=== PATIENT | female | born 2000 | race Caucasian/White ===

== ENCOUNTER 2020-03-12 18:05 | Emergency (ER) | payer OTHER, SELFPAY ==
[2020-03-12 18:11] VITALS: BP 110/68; PULSE 120; RESP 16; TEMP 38.3; O2SAT 100
--- NOTE | 2020-03-12 18:55 | PC.NURSE ---
Pt states she has SI and tried to walk into traffic and cut self over the last two days. Pt states she has not been sleeping or having appetite the last couple days. Pt states she has increased stress due to moving, cheating and possible end of marriage, etc. Pt states she has hx of self cutting, OD attempts, jumping off heights. Pt has family at bedside. Pt aware of POC.
--- NOTE | 2020-03-12 19:13 | ED.PSYCH ---
HPI - Psych General Chief Complaint: Psychiatric Symptoms <Pam Del Angel PA-C - Last Filed: 03/12/20 22:01> Stated Complaint: SI thoughts <Pam Del Angel PA-C - Last Filed: 03/12/20 22:01> Time Seen by Provider: 03/12/20 18:54 <Pam Del Angel PA-C - Last Filed: 03/12/20 22:01> Source: patient <MISHA Arboleda Last Filed: 03/12/20 22:01> Mode of arrival: ambulatory <MISHA Arboleda Last Filed: 03/12/20 22:01> Limitations: no limitations <Pam Del Angel PA-C - Last Filed: 03/12/20 22:01> History of Present Illness HPI Narrative: This is a 19 year old female that presents to the ER for suicide attempt today. Reports she tried to walk into traffic to get run over. Reports last night she cut her right thigh in attempt to harm herself. Reports history of self harm. Presents with her friend who brought her to be evaluated. Reports she is having some trouble at home that is causing depression. Reports history of anxiety and depression. Denies fever, cold symptoms, abdominal pain, vomiting, dysuria or hematuria. <Pam Del Angel PA-C - Last Filed: 03/12/20 22:01> Review of Systems Review of Systems: Narrative: CONSTITUTIONAL: Denies fever RESPIRATORY: Denies cough or dyspnea. GASTROINTESTINAL: Denies abdominal pain, nausea, vomiting GENITOURINARY: Denies dysuria or hematuria. SKIN: Reports lacerations PSYCHIATRIC: Reports anxiety and depression. <Pam Del Angel PA-C - Last Filed: 03/12/20 22:01> All systems reviewed & are unremarkable except as noted in HPI and below <Pam Del Angel PA-C - Last Filed: 03/12/20 22:01> PMFSH Past Medical History Medical History: Medical History (Updated 03/13/20 @ 05:04 by Brendan Johnson MD) History of anxiety History of depression <Pam Del Angel PA-C - Last Filed: 03/12/20 22:01> Social History Social History: Social History (Updated 03/12/20 @ 19:19 by Pam Del Angel PA-C) Smoking status: Current every day smoker Alcohol intake: current Substance use: never Gender identity (if verbalized by the patient): Female <Pam Del Angel PA-C - Last Filed: 03/12/20 22:01> Exam Narrative: Exam Narrative: GENERAL: Well-appearing, well-nourished, and in no acute distress. HEAD: Normocephalic, atraumatic. EYES: PERRLA and EOMI. ENT: Nares clear, no rhinorrhea or epistaxis. Mucous membranes moist. Oropharynx without tonsillar hypertrophy exudate or other lesions. Bilateral TMs pearly ferrer non-bulging NECK: Supple. No adenopathy or masses. CHEST: Clear to auscultation. No respiratory distress. No wheezes rales or rhonchi HEART: Regular rate and rhythm. No murmur heard. Normal peripheral pulses. EXTREMITIES: Normal range of motion. No edema. SKIN: Warm, dry, no rash. Several, small superficial lacerations to the anterior right thigh NEURO: No focal deficits. Alert and oriented x3. PSYCH: Depressed mood <Pam Del Angel PA-C - Last Filed: 03/12/20 22:01> Course Vital Signs Vital signs: Vital Signs Temperature 38.3 C H 03/12/20 18:11 Pulse Rate 120 H 03/12/20 18:11 Respiratory Rate 16 03/12/20 18:11 Blood Pressure 110/68 03/12/20 18:11 Pulse Oximetry 100 03/12/20 18:11 Temperature 36.6 C 03/13/20 03:00 Pulse Rate 90 03/13/20 03:00 Respiratory Rate 18 03/13/20 03:00 Blood Pressure 101/57 L 03/13/20 03:00 Pulse Oximetry 100 03/13/20 03:00 <Pam Del Angel PA-C - Last Filed: 03/12/20 22:01> Vital Signs Temperature 38.3 C H 03/12/20 18:11 Pulse Rate 120 H 03/12/20 18:11 Respiratory Rate 16 03/12/20 18:11 Blood Pressure 110/68 03/12/20 18:11 Pulse Oximetry 100 03/12/20 18:11 Temperature 36.6 C 03/13/20 03:00 Pulse Rate 90 03/13/20 03:00 Respiratory Rate 18 03/13/20 03:00 Blood Pressure 101/57 L 03/13/20 03:00 Pulse Oximetry 100 03/13/20 03:00 <Brendan Johnson MD - Last Filed: 03/13/20 06:06> BILLIE - Psych M
[2020-03-12 19:15] LABS: Basophils Percent Auto 0.6 % (0.2-1.2); Eosinophils Absolute Auto 0.1 K/mm3 (0-0.3); Eosinophils Percent Auto 1.1 % (0-4.4); Hematocrit 37.5 % (37.0-47.0); Hemoglobin 12.6 g/dL (12.0-15.0); Immature Granulocyte Absolute 0.01 K/mm3 (0.00-0.031); Immature Granulocyte Percent A 0.2 % (0-0.5); Lymphocytes Absolute Auto 3.35 K/mm3 (0.9-3.2); Mean Corpuscular HGB Conc 33.6 g/dl (32-36); Mean Corpuscular Hemoglobin 30.6 pg (26-34); Monocytes Absolute Auto 0.5 K/mm3 (0.1-0.6); Monocytes Percent Auto 7.3 % (2.6-8.5); Neutrophils Absolute Auto 2.5 K/mm3 (1.3-6.7); Neutrophils Percent Auto 38.8 % (45.5-73.1); Platelet Count Result 323 k/mm3 (150-375); Red Blood Count 4.12 M/mm3 (4.2-5.4); Red Cell Distribution Width 12.1 % (11.5-14.5); White Blood Count 6.4 K/mm3 (4.5-10.0)
[2020-03-12 19:16] VITALS: BP 108/68; PULSE 98; TEMP 37; O2SAT 99
[2020-03-12] MEDS: TETANUS,DIPHTHERIA,AC PERTUSSIS ADULT (0.5 ML) BOOSTRIX IM (19:22)
[2020-03-12 19:26] LABS: Alanine Aminotransferase 12 U/L (4-35); Albumin Level 4.7 g/dL (3.7-5.6); Alkaline Phosphatase 47 U/L (45-116); Aspartate Amino Transferase 19 U/L (14-36); Bilirubin,Total 0.4 mg/dL (0.2-1.3); Blood Urea Nitrogen 10 mg/dL (8-21); Calcium 9.4 mg/dL (8.9-10.7); Carbon Dioxide 23 mmol/L (22-30); Chloride 108 mmol/L (98-107); Estimated CRCL calculation 111 ml/min; Estimated Glomerular Filt Rate > 60; Glucose 87 mg/dL (65-105); Potassium 3.8 mmol/L (3.4-5.0); Sodium 142 mmol/L (134-143)
[2020-03-12 19:27] LABS: Ethanol 123 mg/dL (<10)
[2020-03-12 19:59] LABS: Add Urine Microscopic? YES; Appearance Urine Clear (Clear); Bilirubin Urine Negative (Negative); Blood Urine 3+ (Negative); Color Urine Straw (Yellow); Glucose Urine UA Negative (Negative); Ketones Urine Negative (Negative); Leukocyte Esterase Ur Negative LEU/UL (Negative); Mucus Urine Rare /lpf; Nitrate Urine Negative (Negative); Protein Urine Negative (Negative); RBC Urine 0-2 /hpf (0-2); Specific Grav Ur 1.011 (1.001-1.035); Squamous Epithelial Cell Urine Occasional /hpf (Few); Urobilinogen Urine Negative mg/dL (<2.0); WBC Urine 0-3 /hpf
[2020-03-12 20:10] LABS: Amphetamine Screen Urine Negative (Negative); Barbiturate Screen Urine Negative (Negative); Benzodiazepines Screen Urine Negative (Negative); Cannabinoid Screen Urine Negative (Negative); Cocaine Screen Urine Negative (Negative); Methadone Screen Urine Negative (Negative); Opiate Screen Urine Negative (Negative); Phencyclidine Screen Urine Negative (Negative)
[2020-03-13 00:28] LABS: Ethanol < 10 mg/dL (<10)
--- NOTE | 2020-03-13 00:40 | PC.NURSE ---
This nurse contacts [facility] and speaks with Mau in regards to patient being evaluated. Mau states patient does not qualify for [facility] since patient has private insurance. food cart attendant notified.
--- NOTE | 2020-03-13 00:42 | PC.NURSE ---
This nurse calls Crisis and speaks with Duong to have patient evaluated. Duong stated he will call the recycling worker to notify her of the patient's need for evaluation. Duong stated the recycling worker is on her way out.
[2020-03-13 03:00] VITALS: BP 101/57; PULSE 90; RESP 18; TEMP 36.6; O2SAT 100
== END 2020-03-13 06:01 | disposition home or self-care (01) ==
PROVIDERS: Physician Assistant; Emergency Provider Emergency Medicine; PCP Nurse Practitioner Family
DX: T14.91XA Suicide attempt, initial encounter (principal); S71.111A Laceration without foreign body, right thigh, initial encounter; Z23 Encounter for immunization; F17.290 Nicotine dependence, other tobacco product, uncomplicated; X78.8XXA Intentional self-harm by other sharp object, initial encounter
CPT/HCPCS: 36415; 80053; 80307; 81001; 81025; 84443; 85025; 90471; 90715; 99284

== ENCOUNTER 2022-03-23 16:16 | Emergency (ER) | payer OTHER, SELFPAY ==
[2022-03-23 16:33] VITALS: BP 108/63; PULSE 88; RESP 18; TEMP 37.3; O2SAT 99
--- NOTE | 2022-03-23 16:35 | ED.URI ---
HPI - URI/Sore Throat General Chief Complaint: Upper Respiratory Infection Stated Complaint: Wheezing,Chest Congestion Time Seen by Provider: 03/23/22 16:30 Source: patient Mode of arrival: ambulatory Limitations: no limitations History of Present Illness HPI Narrative: Ms. Garza is a 21-year-old female patient presenting to the clinic today with complaints of shortness of breath, congestion, and cough. She reports that her symptoms began on Sunday and she took a COVID test yesterday and it was positive. She denies any fever or chills. She reports that her cough and shortness of breath are increasingly getting worse and she is concerned that she may have pneumonia. States she is bringing up some clear phlegm with her cough. SPO2 is 98 to 99% on room air MD elicited complaint: sore throat and nasal congestion Related Data Home Medications Medication Instructions Recorded Confirmed lamotrigine 25 mg tablet 1 tablet PO DAILY 03/23/22 03/23/22 Allergies Allergy/AdvReac Type Severity Reaction Status Date / Time No Known Allergies Allergy Verified 03/23/22 16:31 Review of Systems Review of Systems: Pertinent positives per HPI. Patient denies any fever, chills, rash, headache, visual changes, dizziness, chest pain, palpitations, nausea, vomiting, diarrhea, constipation, abdominal pain, or any urinary issues. [facility] Past Medical History Medical History (Updated 03/23/22 @ 16:38 by Lamont Anderson APRN) History of anxiety History of depression Social History Social History (Updated 03/12/20 @ 19:19 by Pam Del Angel PA-C) Smoking status: Current every day smoker Alcohol intake: current Substance use: never Gender identity (if verbalized by the patient): Female Comments At the time of my signature, I reviewed and agree with the nursing past medical, surgical, social, and family history. There is no relevant family history pertinent to the patient complaint. Exam Narrative: General: Well-developed, well nourished, in no apparent distress Head: Normocephalic, atraumatic Eyes: Pupils equally round and reactive to light bilaterally, EOM intact, sclera and conjunctive clear, no discharge, lids normal Ears: TMs intact and clear, ear canals clear, no drainage, grossly hearing normal. Nose: Nares patent, no discharge, no inflammation, no sinus tenderness. Mouth: Oral pharynx without lesions or masses, good dentition, MMM. Neck: Supple, trachea midline, no enlargement of anterior or posterior cervical nodes, no thyroid masses or goiter palpable. Cardio: Regular rate and rhythm, s1 and s2 normal, no murmur appreciated. Resp: Clear to auscultation bilaterally, no rhonchi, rales, wheezing or rubs Course Course Emergency Course: Portions of this record may have been created with voice recognition software. Level of Care: Express Care Visit Vital Signs Vital signs: Vital signs reviewed MDM - URI/Sore Throat MDM Narrative Medical decision making narrative: At the time of visit patient is resting comfortably on the exam table. She has had a positive COVID test yesterday. Since she is having worsening symptoms I will go ahead and give her a prescription for albuterol inhaler and paxlovid. Work note was given. discharge plan reviewed with the patient and she voiced understanding of discharge instructions and agrees to treatment plan. Differential Diagnosis Differential diagnosis: Likely upper respiratory infection, sinusitis, viral infection, influenza, pharyngitis and other (COVID) Discharge Plan Discharge Clinical Impression: COVID-19 Patient Disposition: Home, Self-Care Condition: Stable Instructions: Antibiotic Form, How To Wash Your Hands (ED), Droplet Precautions (ED), COVID-19 (Coronavirus Disease 2019) (ED), How to Recover from COVID-19 at Home (ED) Additional Instructions: Take prescription medications only as prescribed-albuterol inhaler and paxlovid as prescribed In
== END 2022-03-23 16:45 | disposition home or self-care (01) ==
PROVIDERS: Emergency Provider Nurse Practitioner Family
DX: U07.1 COVID-19 (principal); F17.200 Nicotine dependence, unspecified, uncomplicated; F32.A Depression, unspecified
CPT/HCPCS: 99213; G0463

== ENCOUNTER 2022-07-11 16:53 | Emergency (ER) | payer OTHER, SELFPAY ==
[2022-07-11 17:06] VITALS: BP 107/76; PULSE 76; RESP 18; TEMP 36.8; O2SAT 99
--- NOTE | 2022-07-11 17:21 | ED.GENADULT ---
HPI - General Adult General Chief complaint: Upper Respiratory Infection Stated complaint: rt ear discomfort,cough History of Present Illness HPI narrative: 22 y/o female. PMHx Non-contributory. Presents to [facility] clinic today with acute complaints of increased nasal congestion, cough, and bilateral ear 'fullness' for the past She describes a large amount of sinus congestion and discharge. Bilateral ear pressure, LT > burdensome than RT. Non-productive cough. Positive ESCALANTE/pressure, intermittent dizziness, worse with quick movements. No focal weakness or seizure like activity. No fevers, neck pain. No chest pain palpitations, dyspnea. No GI upset, N/V. Client denies known ill contacts. Has been tested negative for Covid at work daily. She is on day # 5 of oral Amoxicillin per PCP, however notes only some reliefs. Related Data Home Medications Medication Instructions Recorded Confirmed amoxicillin 875 mg-potassium 1 tablet BID 07/11/22 07/11/22 clavulanate 125 mg tablet Allergies Allergy/AdvReac Type Severity Reaction Status Date / Time No Known Allergies Allergy Verified 07/11/22 17:15 Review of Systems Review of Systems: CONSTITUTIONAL: No fever, chills, sweats. ESCALANTE. EYES: Denies visual changes, redness, discharge. ENT: Positive rhinorrhea, congestion, otalgia. No sore throat. CARDIOVASCULAR: Denies chest pain, palpitations, edema. RESPIRATORY: Denies dyspnea, wheezing. Positive cough GASTROINTESTINAL: Denies abdominal pain, nausea, vomiting, diarrhea. GENITOURINARY: Denies dysuria, hematuria, abnormal discharge SKIN: Denies rash or itching. MUSCULOSKELETAL: Denies acute back pain, joint pain, or myalgia. NEUROLOGIC: Denies numbness, or focal weakness. PSYCHIATRIC: Denies anxiety or depression. PMFSH Past Medical History Medical History History of anxiety History of depression Social History Social History Smoking status: Current every day smoker Alcohol intake: current Substance use: never Gender identity (if verbalized by the patient): Female Exam Narrative: GENERAL: This is a well-nourished, well-developed adult, in no apparent distress. HEAD: normocephalic, atraumatic. EYES: PERRL. Sclera clear/white. EOM intact. No nystagmus. EARS: External ears normal, auditory canals clear and without drainage, TMs full/bulging. NOSE: External nose normal. Positive thick purulent nasal discharge, no obstruction. THROAT: Mucous membranes moist, posterior pharynx erythematous, no exudative change. +PND. NECK: Neck supple, non-tender without lymphadenopathy, masses or thyromegaly. CARDIOVASCULAR: Regular rate and rhythm without murmurs, gallops, or rubs. RESPIRATORY: Clear to auscultation. Breath sounds equal bilaterally. No wheezes, rales, or rhonchi. GASTROINTESTINAL: Abdomen soft, non-tender, nondistended. Bowel sounds are active. No guarding. SKIN: warm, intact with no suspicious lesions or rash, good texture and turgor. NEURO: Alert, active, and age appropriate. No focal neurologic deficits. EXTREMITIES: Negative. Course Course Level of Care: Express Care Visit Vital Signs Vital signs: Vital Signs Temperature 36.8 C 07/11/22 17:06 Pulse Rate 76 07/11/22 17:06 Respiratory Rate 18 07/11/22 17:06 Blood Pressure 107/76 07/11/22 17:06 Pulse Oximetry 99 07/11/22 17:06 Oxygen Delivery Room Air 07/11/22 17:06 Temperature 36.8 C 07/11/22 17:06 Pulse Rate 76 07/11/22 17:06 Respiratory Rate 18 07/11/22 17:06 Blood Pressure 107/76 07/11/22 17:06 Pulse Oximetry 99 07/11/22 17:06 Oxygen Delivery Room Air 07/11/22 17:06 Medical Decision Making [facility] Narrative Medical decision making narrative: -Normotensive, no fluctuations. -No focal neurological deficits. -Appears non-toxic. -OP care instructions have be
== END 2022-07-11 17:27 | disposition home or self-care (01) ==
PROVIDERS: Emergency Provider Nurse Practitioner Adult Health
DX: J06.9 Acute upper respiratory infection, unspecified (principal)
CPT/HCPCS: 99213; G0463

== ENCOUNTER 2022-12-18 20:01 | Emergency (ER) | payer OTHER, SELFPAY ==
[2022-12-18 20:07] VITALS: BP 114/69; PULSE 101; RESP 18; TEMP 37.2; O2SAT 100
[2022-12-18 20:33] LABS: Basophils Absolute Auto 0.1 K/mm3 (0.0-0.1); Basophils Percent Auto 0.6 % (0.2-1.2); Eosinophils Absolute Auto 0.1 K/mm3 (0-0.3); Eosinophils Percent Auto 0.8 % (0-4.4); Hematocrit 38.7 % (37.0-47.0); Hemoglobin 12.8 g/dL (12.0-15.0); Immature Granulocyte Absolute 0.02 K/mm3 (0.00-0.031); Immature Granulocyte Percent A 0.2 % (0-0.5); Lymphocytes Absolute Auto 3.84 K/mm3 (0.9-3.2); Lymphocytes Percent Auto 46.4 % (18.3-44.2); Mean Corpuscular HGB Conc 33.1 g/dl (32-36); Mean Corpuscular Hemoglobin 30.5 pg (26-34); Mean Corpuscular Volume 92.1 fl (80-100); Mean Platelet Volume 8.7 fl (7.4-10.4); Monocytes Absolute Auto 0.6 K/mm3 (0.1-0.6); Monocytes Percent Auto 7.6 % (2.6-8.5); Neutrophils Absolute Auto 3.7 K/mm3 (1.3-6.7); Neutrophils Percent Auto 44.4 % (45.5-73.1); Platelet Count Result 366 k/mm3 (150-375); Red Cell Distribution Width 11.8 % (11.5-14.5); White Blood Count 8.3 K/mm3 (4.5-10.0)
[2022-12-18 20:43] LABS: Acetaminophen < 10 ug/mL (10-30); Alanine Aminotransferase 20 U/L (6-35); Alkaline Phosphatase 57 U/L (38-126); Anion Gap 11 mmol/L (8-16); Aspartate Amino Transferase 23 U/L (14-36); Bilirubin,Total 0.5 mg/dL (0.2-1.3); Blood Urea Nitrogen 8 mg/dL (7-17); Calcium 9.1 mg/dL (8.4-10.2); Carbon Dioxide 23 mmol/L (22-30); Chloride 109 mmol/L (98-107); Estimated Glomerular Filt Rate > 60; Ethanol 178 mg/dL (<10); Glucose 124 mg/dL (65-110); Potassium 3.6 mmol/L (3.4-5.0); Salicylate < 1.0 mg/dL (2-20); Sodium 143 mmol/L (137-145)
[2022-12-18 20:57] LABS: Amphetamine Screen Urine Negative (Negative); Barbiturate Screen Urine Negative (Negative); Benzodiazepines Screen Urine Negative (Negative); Cannabinoid Screen Urine Negative (Negative); Cocaine Screen Urine Negative (Negative); Methadone Screen Urine Negative (Negative); Opiate Screen Urine Negative (Negative); Phencyclidine Screen Urine Negative (Negative)
[2022-12-18 21:01] LABS: Appearance Urine Clear (Clear); Bacteria Urine Rare /hpf; Bilirubin Urine Negative (Negative); Blood Urine 1+ (Negative); Color Urine Yellow (Yellow); Glucose Urine UA Negative (Negative); Hyaline Casts Urine Present /lpf; Ketones Urine Negative (Negative); Leukocyte Esterase Ur Trace LEU/UL (Negative); Nitrate Urine Negative (Negative); Non Pathogenic Casts 0-2; Protein Urine Negative (Negative); RBC Urine 0-2 /hpf (0-2); Specific Grav Ur 1.002 (1.001-1.035); Squamous Epithelial Cell Urine Occasional /hpf (Few); Urobilinogen Urine 0.2 mg/dL (<2.0); WBC Urine 0-5 /hpf
--- NOTE | 2022-12-18 21:48 | ED.PSYCH ---
HPI - Psych General Chief Complaint: Psychiatric Symptoms <Cecille Brito PA-C - Last Filed: 12/19/22 04:54> Stated Complaint: SI/ETOH <Cecille Brito PA-C - Last Filed: 12/19/22 04:54> Time Seen by Provider: 12/18/22 20:03 <Cecille Brito PA-C - Last Filed: 12/19/22 04:54> Source: patient <MISHA Layton Last Filed: 12/19/22 04:54> Mode of arrival: EMS <MISHA Layton Last Filed: 12/19/22 04:54> Limitations: no limitations <Cecille Brito PA-C - Last Filed: 12/19/22 04:54> History of Present Illness HPI Narrative: Patient is a 22 y/o female, with a PMHx of bipolar disorder, who presents to the ED via EMS with report of self-harm. Per EMS report, they were called out due to patient having cut herself tonight. Patient does admit to participating in self-harm using a kitchen knife to cut her left forearm and right anterior thigh. She states she last cut herself 1 week ago and 1 year prior to that. She did sustain a deeper laceration to her left forearm which did have active bleeding upon my evaluation. Patient states she was disappointed that the other wounds were not deeper. She does admit to having suicidal thoughts frequently and more increased over the last few weeks. She states she is just been overwhelmed with work, family, school, all of the above. She denies any homicidal ideation. Patient lives with her . 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 She does admit to drinking alcohol tonight, at least a half a pint. Denies any drug use. Patient takes Lamotrigine, Fluoxetine, and Klonopin. She has been taking her medications as prescribed. She does see a counselor and psychiatrist. She denies ever being hospitalized for psychiatric reasons before. <MISHA Layton Last Filed: 12/19/22 04:54> Related Data Home Medications: Home Medications Medication Instructions Recorded Confirmed lamotrigine 100 mg tablet 100 mg PO DAILY 08/10/22 08/10/22 (Lamictal) omega 3-neh-ier-fish oil 1,000 mg 1 cap PO DAILY 08/10/22 08/10/22 (120 mg-180 mg) capsule (Fish Oil) prenat.vits,fabio,dbs-cfgt-nggmk 1 tablet PO DAILY 08/10/22 08/10/22 <Cecille Brito PA-C - Last Filed: 12/19/22 04:54> Allergies/Adverse Reactions: Allergies Allergy/AdvReac Type Severity Reaction Status Date / Time No Known Allergies Allergy Verified 08/10/22 09:29 <Cecille Brito PA-C - Last Filed: 12/19/22 04:54> Review of Systems Review of Systems: CONSTITUTIONAL: Denies fever, chills, or sweats. CARDIOVASCULAR: Denies chest pain. RESPIRATORY: Denies dyspnea. GASTROINTESTINAL: Denies abdominal pain, nausea, vomiting. SKIN: See HPI. MUSCULOSKELETAL: Denies back pain, joint pain, or myalgia. NEUROLOGIC: Denies headache, numbness, or weakness. PSYCHIATRIC: See HPI. <Cecille Brito PA-C - Last Filed: 12/19/22 04:54> All systems reviewed & are unremarkable except as noted in HPI and below <Cecille Brito PA-C - Last Filed: 12/19/22 04:54> PMFSH Past Medical History Medical History: Medical History Allergies Bipolar disorder History of anxiety History of depression <Cecille Brito PA-C - Last Filed: 12/19/22 04:54> Surgical History Surgical History: Surgical History No pertinent past surgical history <Cecille Briot PA-C - Last Filed: 12/19/22 04:54> Family History Family History: Family History Other Alcoholism Depression Diabetes mellitus Heart disease Hypertension <Cecille Brito PA-C - Last Filed: 12/19/22 04:54> Social History Social History: Social History Smoking status: Current every day
[2022-12-18 21:53] LABS: Add Urine Microscopic? YES
[2022-12-18] MEDS: TETANUS,DIPHTHERIA,AC PERTUSSIS ADULT (0.5 ML) BOOSTRIX IM (23:02)
[2022-12-19 00:44] LABS: Ethanol 71 mg/dL (<10)
--- NOTE | 2022-12-19 01:37 | PC.NURSE ---
Crisis called at this time.
--- NOTE | 2022-12-19 03:24 | PC.NURSE ---
chestnut at bedside at this time.
== END 2022-12-19 05:47 | disposition home or self-care (01) ==
PROVIDERS: Emergency Provider Physician Assistant; PCP Nurse Practitioner Family
DX: F32.A Depression, unspecified (principal); R45.851 Suicidal ideations; R45.88 Nonsuicidal self-harm; S51.812A Laceration without foreign body of left forearm, initial encounter; F10.10 Alcohol abuse, uncomplicated; Y90.6 Blood alcohol level of 120-199 mg/100 ml; F41.9 Anxiety disorder, unspecified; W26.0XXA Contact with knife, initial encounter; Z23 Encounter for immunization
CPT/HCPCS: 12001; 36415; 80053; 80307; 81001; 84443; 85025; 90471; 90715; 99284